=== PATIENT | female | born 1935 | race Caucasian/White ===

== ENCOUNTER → 2017-04-18 | Outpatient (CLI) | payer MEDICARE ==
[~2017-04-18] MED LIST: 0.9 % Sodium Chloride IVF; ACET325T14 PO; ACID1TAB7 PO; ALBU18HF INH; ALBU2.5V11 INH; ALBU8.5H3 INH; AMIT50TA PO; AMLO10TA4; AMLO5TAB2 PO; AMLO5TAB4 PO; AMOX875T PO; BISA10SU65 PR; CEFT1FRO2 IV; CELE100C PO; COLACE PO; COUMADIN PO; DICL100G8 TP; DOCU-30 PO; DOXY100C2; DOXY100T PO; FERR325C PO; FLUO20CA19 PO; FLUO40CA9 PO; FLUT1AER INH; FLUT1DIS3 INH; FLUT1DIS3 PO; FURO-93 PO; FURO20TA3 PO; HYDR-3144 PO; HYDR100V IV; HYDR25TA6 PO; HYDR2VIA2 IV; IPRA3AMP NPPB; LABE5VIA13 IVPush; LEVO75TA; LEVO75TA PO; LINE600I14 IV; LORA10TA3 PO; LOSA100T2; LOSA50TA2 PO; MAGN400T7 PO; MULT-750 PO; NICO1PAT5 TD; OMEP-110; OMEP-110 PO; OMEP40CA6 PO; ONDA4VIA4 IVP; OXYC10TA32 PO; OXYC20TA42 PO; POLY17PO5 PO; POTA10TA11 PO; POTA20TA14 PO; PRAV20TA PO; PRAV20TA2 PO; PRED1TAB PO; PRED5TAB PO; PROBIOTIC CULTURELLE PO; REGADENOSON 0.4 MG/5 ML SYRINGE ONE; SENN1TAB7 PO; TIOT18CA INH; TRAM50TA2 PO; WARF5TAB7 PO-COUM; ZOLP5TAB6 PO; [UNRECOGNIZED DRUG - CODE] IV; [UNRECOGNIZED DRUG - OTHER]
== END | disposition home or self-care (01) ==
LOC: CFH 11:29
PROVIDERS: ATTEND Nurse Practitioner Primary Care
DX: R94.31 Abnormal electrocardiogram [ECG] [EKG] (principal); E03.9 Hypothyroidism, unspecified; E78.2 Mixed hyperlipidemia; I10 Essential (primary) hypertension; F06.4 Anxiety disorder due to known physiological condition; K21.9 Gastro-esophageal reflux disease without esophagitis; G89.29 Other chronic pain; M81.0 Age-related osteoporosis without current pathological fracture
CPT/HCPCS: 76536; 78452; 93017; A9502; J2785

== ENCOUNTER → 2017-05-08 | Outpatient (CLI) | payer MEDICARE ==
[~2017-05-08] MED LIST changes: -REGADENOSON 0.4 MG/5 ML SYRINGE ONE
== END | disposition home or self-care (01) ==
LOC: PETCFH 10:35
PROVIDERS: ATTEND Nurse Practitioner Primary Care
DX: E03.9 Hypothyroidism, unspecified (principal); E78.2 Mixed hyperlipidemia; I10 Essential (primary) hypertension; K21.9 Gastro-esophageal reflux disease without esophagitis; M81.0 Age-related osteoporosis without current pathological fracture; G89.29 Other chronic pain
CPT/HCPCS: 78013; A9516

== ENCOUNTER → 2017-05-17 | Outpatient (CLI) | payer MEDICARE ==
[~2017-05-17] MED LIST changes: -ALBU8.5H3 INH; +ALBU8.5H8 INH; +DICL100G19 TP; -DICL100G8 TP; +DOCU-131 PO; -DOCU-30 PO; -HYDR-3144 PO; +HYDR-3245 PO; +NICO1PAT16 TD; -NICO1PAT5 TD; -OXYC10TA32 PO; +OXYC10TA47 PO
== END | disposition home or self-care (01) ==
LOC: EDSTATUS 10:00 → CFH 15:55
PROVIDERS: ATTEND Internal Medicine
DX: K76.89 Other specified diseases of liver (principal); R91.1 Solitary pulmonary nodule; E03.9 Hypothyroidism, unspecified; E78.2 Mixed hyperlipidemia; I10 Essential (primary) hypertension; K21.9 Gastro-esophageal reflux disease without esophagitis; M81.0 Age-related osteoporosis without current pathological fracture; Z85.9 Personal history of malignant neoplasm, unspecified
CPT/HCPCS: 71250

== ENCOUNTER 2017-05-24 09:18 | Day surgery (SDC) | payer MEDICARE ==
[~2017-05-24] VITALS: Ht 157.5 cm; Wt 67.3 kg
[2017-05-24 09:50] VITALS: BP 148/65
[2017-05-24] MEDS ORDERED: SODIUM CHLORIDE 0.9% 1,000 ML IV SCH (09:57)
== END 2017-05-24 12:55 ==
LOC: OUT 09:18 → EDSTATUS 09:30 → OUT 12:55
PROVIDERS: ATTEND Internal Medicine
DX: C22.8 Malignant neoplasm of liver, primary, unspecified as to type (principal); I10 Essential (primary) hypertension; J44.9 Chronic obstructive pulmonary disease, unspecified; E03.9 Hypothyroidism, unspecified; E78.5 Hyperlipidemia, unspecified; Z88.6 Allergy status to analgesic agent; Z86.14 Personal history of Methicillin resistant Staphylococcus aureus infection
CPT/HCPCS: 36415; 47000; 77012; 85610; 88307; 99156; J2250; J3010; J7030; 99157; J2310

== ENCOUNTER 2017-07-31 17:33 | Inpatient (IN) | payer MEDICARE ==
[~2017-07-31] VITALS: Ht 157.5 cm; Wt 69.9 kg
[~2017-07-31 17:33] MED LIST changes: +NICO-487 TD; -NICO1PAT16 TD
[2017-07-31] MEDS ORDERED: ONDANSETRON 2MG/ML, 2ML ONE (17:56)
[2017-07-31] MEDS ORDERED: SODIUM CHLORIDE 0.9% 1,000ML IVBOLUS ONE (18:00)
[2017-07-31] MEDS ORDERED: ONDANSETRON 2MG/ML, 2ML IVPush ONE (18:00)
[2017-07-31] MEDS ORDERED: UBID1CAP43 PO (18:17)
[2017-07-31 18:38] LABS: HEMATOCRIT 37.2 % (34.6-47.8); HEMOGLOBIN 11.9 g/dL (11.7-16.4); WHITE BLOOD COUNT 8.2 x10^3/uL (3.4-10)
[2017-07-31 18:46] LABS: BLOOD UREA NITROGEN 21 mg/dL (7-18)
[2017-07-31 18:50] LABS: ASPARTATE AMINO TRANSFERASE 21 U/L (15-37)
[2017-07-31] MEDS ORDERED: HYDROmorphone 1 MG/ML, 1ML ONE ×2 (19:32→20:32)
[2017-07-31] MEDS: HYDROmorphone 1 MG/ML, 1ML IVPush PRN ×2 (19:38→20:36)
[2017-07-31] MEDS ORDERED: SODIUM CHLORIDE 0.9% 1,000 ML IV ONE (21:11)
[2017-07-31] MEDS ORDERED: ONDANSETRON 2MG/ML, 2ML IVPush PRN ×2 (21:30→23:00)
[2017-07-31] MEDS ORDERED: HYDROmorphone 1 MG/ML, 1ML IVPush PRN (21:30)
[2017-07-31 22:42] VITALS: BP 157/73
[2017-07-31] MEDS ORDERED: FENTANYL 12 MCG PATCH TD SCH (23:00)
[2017-07-31] MEDS ORDERED: ACETAMINOPHEN 325 MG TABLET PO PRN (23:00)
[2017-07-31] MEDS: METHYLNALTREXONE 12 MG/0.6 ML SQ SCH (23:24)
[2017-07-31] MEDS: BISACODYL 10 MG SUPP PR SCH (23:25)
[2017-07-31] MEDS: NS + 20MEQ KCL 1,000 ML IV SCH (23:26)
[2017-08-01 02:00] VITALS: BP 159/75
[2017-08-01 03:38] VITALS: BP 157/73
[2017-08-01] MEDS: LEVOTHYROXINE 75 MCG TABLET PO SCH (06:00)
[2017-08-01 07:20] VITALS: BP 194/65
[2017-08-01] MEDS: HYDROmorphone 2 MG/ML, 1ML IVPush PRN ×4 (10:08→20:19)
[2017-08-01] MEDS: AMLODIPINE 5 MG TABLET PO SCH (10:17)
[2017-08-01] MEDS: FLUOXETINE 20 MG CAPSULE PO SCH (10:17)
[2017-08-01] MEDS: HYDROCHLOROTHIAZIDE 25 MG TABLET PO SCH (10:17)
[2017-08-01] MEDS: FUROSEMIDE 20 MG TABLET PO SCH (10:18)
[2017-08-01] MEDS: BISACODYL 10 MG SUPP PR SCH ×2 (10:18→21:21)
[2017-08-01] MEDS: FLUTICASONE/VILANTEROL 100-25MCG/INH INH SCH (12:20)
[2017-08-01 13:13] VITALS: BP 162/72
[2017-08-01 13:14] VITALS: BP 162/72
[2017-08-01] MEDS: NS + 20MEQ KCL 1,000 ML IV SCH (14:48)
[2017-08-01 20:32] VITALS: BP 147/69
[2017-08-02] MEDS: HYDROmorphone 2 MG/ML, 1ML IVPush PRN ×5 (00:39→16:20)
[2017-08-02 00:52] VITALS: BP 149/68
[2017-08-02] MEDS: NS + 20MEQ KCL 1,000 ML IV SCH ×2 (02:41→15:50)
[2017-08-02] MEDS: LEVOTHYROXINE 75 MCG TABLET PO SCH (05:51)
[2017-08-02 07:05] VITALS: BP 136/63
[2017-08-02] MEDS: FUROSEMIDE 20 MG TABLET PO SCH (09:27)
[2017-08-02] MEDS: AMLODIPINE 5 MG TABLET PO SCH (09:27)
[2017-08-02] MEDS: FLUTICASONE/VILANTEROL 100-25MCG/INH INH SCH (09:28)
[2017-08-02] MEDS: HYDROCHLOROTHIAZIDE 25 MG TABLET PO SCH (09:28)
[2017-08-02] MEDS: BISACODYL 10 MG SUPP PR SCH (09:28)
[2017-08-02] MEDS: FLUOXETINE 20 MG CAPSULE PO SCH (09:28)
[2017-08-02 13:37] VITALS: BP 144/63
[2017-08-02] MEDS: morphine SULFATE ORAL.CONC 20 MG/ML PO PRN (20:02)
[2017-08-02 20:07] VITALS: BP 154/68
[2017-08-02] MEDS: METHYLNALTREXONE 12 MG/0.6 ML SQ SCH (22:37)
[2017-08-03 01:23] VITALS: BP 156/71
[2017-08-03] MEDS: morphine SULFATE ORAL.CONC 20 MG/ML PO PRN ×4 (01:29→17:50)
[2017-08-03] MEDS: NS + 20MEQ KCL 1,000 ML IV SCH (04:56)
[2017-08-03] MEDS: LEVOTHYROXINE 75 MCG TABLET PO SCH (04:56)
[2017-08-03 07:44] VITALS: BP 154/72
[2017-08-03] MEDS: FLUOXETINE 20 MG CAPSULE PO SCH (08:56)
[2017-08-03] MEDS: FLUTICASONE/VILANTEROL 100-25MCG/INH INH SCH (08:57)
[2017-08-03] MEDS: AMLODIPINE 5 MG TABLET PO SCH (08:57)
[2017-08-03] MEDS: HYDROCHLOROTHIAZIDE 25 MG TABLET PO SCH (08:57)
[2017-08-03] MEDS: FUROSEMIDE 20 MG TABLET PO SCH (08:57)
[2017-08-03] MEDS ORDERED: METH12VI2 SQ (11:25)
[2017-08-03] MEDS ORDERED: MORP100S3 PO (11:25)
[2017-08-03] MEDS ORDERED: FENT1PAT74 TD (11:25)
[2017-08-03 14:44] VITALS: BP 122/55
== END 2017-08-03 18:36 | disposition hospice, inpatient (51) | DRG 374 ==
LOC: ED 21:11 → EDIP 21:12 → ED 21:17 → 4EST 22:43 → 3NW 08-01 05:45
PROVIDERS: ADMIT Hospitalist; ATTEND Hospitalist
DX: C78.6 Secondary malignant neoplasm of retroperitoneum and peritoneum (principal); I26.99 Other pulmonary embolism without acute cor pulmonale; K56.609 Unspecified intestinal obstruction, unspecified as to partial versus complete obstruction; J96.10 Chronic respiratory failure, unspecified whether with hypoxia or hypercapnia; C78.7 Secondary malignant neoplasm of liver and intrahepatic bile duct; N18.4 Chronic kidney disease, stage 4 (severe); R18.8 Other ascites; D68.69 Other thrombophilia; D89.9 Disorder involving the immune mechanism, unspecified; C18.9 Malignant neoplasm of colon, unspecified; F11.20 Opioid dependence, uncomplicated; K63.89 Other specified diseases of intestine; Z99.81 Dependence on supplemental oxygen; Z66 Do not resuscitate; I45.10 Unspecified right bundle-branch block; J44.9 Chronic obstructive pulmonary disease, unspecified; E03.9 Hypothyroidism, unspecified; E78.5 Hyperlipidemia, unspecified; E87.6 Hypokalemia; F10.10 Alcohol abuse, uncomplicated; F32.9 Major depressive disorder, single episode, unspecified; G89.29 Other chronic pain; Z96.652 Presence of left artificial knee joint; I12.9 Hypertensive chronic kidney disease with stage 1 through stage 4 chronic kidney disease, or unspecified chronic kidney disease; I25.10 Atherosclerotic heart disease of native coronary artery without angina pectoris; Z51.5 Encounter for palliative care; K21.9 Gastro-esophageal reflux disease without esophagitis; Z72.0 Tobacco use; Z80.0 Family history of malignant neoplasm of digestive organs; Z86.711 Personal history of pulmonary embolism; Z79.2 Long term (current) use of antibiotics; Z88.5 Allergy status to narcotic agent; Z88.8 Allergy status to other drugs, medicaments and biological substances
CPT/HCPCS: 36415; 74177; 80053; 81003; 83690; 85025; 93005; 96361; 96374; 96375; 96376; J1170; J2405; J3480; J7030